=== PATIENT | male | born 1985 | race African-American/Black ===

== ENCOUNTER 2025-04-15 19:32 | Inpatient (IN) | payer OTHER ==
[2025-04-15 20:39] VITALS: BMI 23.7
[2025-04-15] MEDS ORDERED: hydrOXYzine PAMOATE 25 MG CAPSULE (FP) PO PRN (21:39)
[2025-04-15] MEDS ORDERED: LOPERAMIDE HCL 2 MG CAPSULE PO PRN (21:39)
[2025-04-15] MEDS ORDERED: BENZOCAINE/MENTHOL (CHLORASEPTIC ) LOZENGE MM PRN (21:39)
[2025-04-15] MEDS ORDERED: ACETAMINOPHEN 325 MG TABLET (FP) PO PRN (21:39)
[2025-04-15] MEDS ORDERED: ONDANSETRON *ODT* 4 MG TABLET SL PRN (21:39)
[2025-04-15] MEDS ORDERED: IBUPROFEN 400 MG TABLET (FP) PO PRN (21:39)
[2025-04-15] MEDS ORDERED: METHOCARBAMOL 500 MG TABLET PO PRN (21:39)
[2025-04-15] MEDS ORDERED: MAG HYDROX/AL HYDROX/SIMETH 30 ML UNIT-DOSE CUP PO PRN (21:39)
[2025-04-15] MEDS ORDERED: POLYETHYLENE GLYCOL (HEALTHYLAX) 3350 17 GM PACKET PO PRN (21:39)
[2025-04-15] MEDS ORDERED: NICOTINE POLACRILEX 2 MG LOZENGE BC PRN (21:39)
[2025-04-15] MEDS ORDERED: DICYCLOMINE HCL 10 MG CAPSULE PO PRN (21:39)
[2025-04-15] MEDS ORDERED: NICOTINE POLACRILEX 2 MG GUM BUC PRN (21:39)
[2025-04-15] MEDS ORDERED: BISMUTH SUBSALICYLATE 524 MG/30 ML PO PRN (21:39)
[2025-04-15] MEDS ORDERED: guaiFENesin 600 MG TABLET.ER (FP) PO PRN (21:39)
[2025-04-15] MEDS ORDERED: MAGNESIUM HYDROX 2400MG/30ML ORAL SUSPENSION 30 ML CUP PO PRN (21:39)
[2025-04-15] MEDS ORDERED: BENZONATATE 200 MG CAPSULE PO PRN (21:39)
[2025-04-15] MEDS ORDERED: NALOXONE (NARCAN) HCL 4 MG/0.1 ML SPRAY NS PRN (21:39)
[2025-04-15] MEDS ORDERED: chlordiazePOXIDE HCL 25 MG CAPSULE PO PRN (21:41)
[2025-04-15] MEDS ORDERED: MELATONIN 5 MG TABLETS ONE (22:30)
[2025-04-15] MEDS ORDERED: chlordiazePOXIDE HCL 25 MG CAPSULE ONE (22:30)
[2025-04-15] MEDS ORDERED: levETIRAcetam 500 MG TABLET (FP) PO ONE (22:31)
[2025-04-15] MEDS: THIAMINE 100 MG TABLET PO SCH (22:37)
[2025-04-15] MEDS: MELATONIN 5 MG TABLETS PO SCH (22:37)
[2025-04-15] MEDS: levETIRAcetam 500 MG TABLET (FP) PO SCH (22:37)
[2025-04-15] MEDS: chlordiazePOXIDE HCL 25 MG CAPSULE PO SCH (22:38)
[2025-04-16] MEDS: PRENATAL VITAMINS W/ FOLIC ACID TABLET (FP) PO SCH (09:35)
[2025-04-16] MEDS: NIFEdipine E.R. 30 MG TABLET PO SCH ×2 (09:36→19:32)
[2025-04-16 11:31] LABS: HEMATOCRIT 34.5 % (40.1-51.0); HEMOGLOBIN 11.1 g/dL (13.7-17.5); MCHC 32.2 g/dl (32.3-36.5); MEAN CELL VOLUME 92.5 fl (79.0-92.2); MEAN PLT VOLUME 9.7 fl (9.4-12.4); PLATELET COUNT 212 x10^3/uL (163-337); RDW 14.8 % (12.1-15.9)
[2025-04-16 11:34] LABS: CHLORIDE 101 mmol/L (98-107); POTASSIUM 4.1 mmol/L (3.5-5.1); SODIUM 139 mmol/L (136-145)
[2025-04-16 11:36] LABS: ALBUMIN 3.7 g/dl (3.4-5.0); ANION GAP 9 mmol/L (4-13); BLOOD UREA NITROGEN 13.5 mg/dL (7-18); CALCIUM 9.3 mg/dL (8.5-10.1); CO2 29 mmol/L (21-32); GLUCOSE,RANDOM 99 mg/dL (74-106)
[2025-04-16 11:39] LABS: CREATININE 0.8 mg/dL (0.55-1.3); SGOT/AST 46 U/L (15-37); SGPT/ALT 27 U/L (13-61)
[2025-04-16 11:41] LABS: BILIRUBIN,TOTAL 1.1 mg/dL (0.2-1); TOT PROT 6.7 g/dl (6.4-8.2)
[2025-04-16 11:42] LABS: ALK PHOS 55 U/L (45-117)
[2025-04-17] MEDS: chlordiazePOXIDE HCL 25 MG CAPSULE PO SCH (05:29)
[2025-04-17] MEDS: NALTREXONE HCL 50 MG TABLET PO ONE (09:00)
[2025-04-17] MEDS: NIFEdipine E.R 60 MG TABLET PO SCH (10:51)
[2025-04-18] MEDS ORDERED: chlordiazePOXIDE HCL 10 MG CAPSULE PO PRN
[2025-04-18] MEDS: chlordiazePOXIDE HCL 10 MG CAPSULE PO SCH (05:52)
[2025-04-18 08:41] VITALS: BP 115/87; PULSE 76; RESP 16; TEMP 98.4
[2025-04-18] MEDS: NALTREXONE HCL 50 MG TABLET PO SCH (10:23)
[2025-04-18] MEDS: IBUPROFEN 600 MG TABLET (FP) PO PRN (10:23)
[2025-04-18] MEDS ORDERED: chlordiazePOXIDE HCL 10 MG CAPSULE PO SCH (14:00)
[2025-04-19] MEDS ORDERED: chlordiazePOXIDE HCL 10 MG CAPSULE PO SCH (05:00)
[2025-04-19] MEDS ORDERED: chlordiazePOXIDE HCL 10 MG CAPSULE PO ONE (06:00)
[2025-04-20] MEDS ORDERED: chlordiazePOXIDE HCL 10 MG CAPSULE PO ONE (05:00)
== END 2025-04-18 12:41 | disposition home or self-care (01) | DRG 775 ==
LOC: YASAS 19:32 → Y6N 22:28
PROVIDERS: ADMIT Family Medicine; ATTEND Family Medicine
PROC: HZ2ZZZZ Detoxification Services for Substance Abuse Treatment (ICD-10-PCS; principal; 2025-04-15)
DX: F10.230 Alcohol dependence with withdrawal, uncomplicated (principal); F12.20 Cannabis dependence, uncomplicated; F17.210 Nicotine dependence, cigarettes, uncomplicated; I10 Essential (primary) hypertension
CPT/HCPCS: 36415; 80053; 80305; 80307; 85027; 86780; 93005; 93010

== ENCOUNTER 2025-06-28 00:25 | Inpatient (IN) | payer OTHER ==
[2025-06-28 00:48] VITALS: BMI 23.2
[2025-06-28] MEDS ORDERED: guaiFENesin 600 MG TABLET.ER (FP) PO PRN (02:30)
[2025-06-28] MEDS ORDERED: DICYCLOMINE HCL 10 MG CAPSULE PO PRN (02:30)
[2025-06-28] MEDS ORDERED: MAG HYDROX/AL HYDROX/SIMETH 30 ML UNIT-DOSE CUP PO PRN (02:30)
[2025-06-28] MEDS ORDERED: BISMUTH SUBSALICYLATE 524 MG/30 ML PO PRN (02:30)
[2025-06-28] MEDS ORDERED: LOPERAMIDE HCL 2 MG CAPSULE PO PRN (02:30)
[2025-06-28] MEDS ORDERED: POLYETHYLENE GLYCOL (HEALTHYLAX) 3350 17 GM PACKET PO PRN (02:30)
[2025-06-28] MEDS ORDERED: ONDANSETRON *ODT* 4 MG TABLET SL PRN (02:30)
[2025-06-28] MEDS ORDERED: NALOXONE (NARCAN) HCL 4 MG/0.1 ML SPRAY NS PRN (02:30)
[2025-06-28] MEDS ORDERED: BENZOCAINE/MENTHOL (CHLORASEPTIC ) LOZENGE MM PRN (02:30)
[2025-06-28] MEDS ORDERED: BENZONATATE 200 MG CAPSULE PO PRN (02:30)
[2025-06-28] MEDS ORDERED: IBUPROFEN 400 MG TABLET (FP) PO PRN (02:30)
[2025-06-28] MEDS ORDERED: MAGNESIUM HYDROX 2400MG/30ML ORAL SUSPENSION 30 ML CUP PO PRN (02:30)
[2025-06-28] MEDS ORDERED: IBUPROFEN 600 MG TABLET (FP) PO PRN (02:30)
[2025-06-28] MEDS ORDERED: hydrOXYzine PAMOATE 25 MG CAPSULE (FP) PO ONE (03:12)
[2025-06-28] MEDS ORDERED: METHOCARBAMOL 500 MG TABLET ONE (03:12)
[2025-06-28] MEDS: hydrOXYzine PAMOATE 25 MG CAPSULE (FP) PO PRN (03:18)
[2025-06-28] MEDS: METHOCARBAMOL 500 MG TABLET PO PRN (03:18)
[2025-06-28] MEDS ORDERED: ACETAMINOPHEN 325 MG TABLET (FP) ONE (03:20)
[2025-06-28] MEDS: ACETAMINOPHEN 325 MG TABLET (FP) PO PRN (03:21)
[2025-06-28] MEDS: PRENATAL VITAMINS W/ FOLIC ACID TABLET (FP) PO SCH (10:23)
[2025-06-28] MEDS: NIFEdipine E.R 60 MG TABLET PO SCH (13:57)
[2025-06-28] MEDS: MELATONIN 5 MG TABLETS PO SCH (22:09)
[2025-06-28] MEDS: THIAMINE 100 MG TABLET PO SCH (22:09)
[2025-06-29 10:21] LABS: GLUCOSE,RANDOM 98.0 mg/dL (74-106); TOT PROT 7.2 g/dl (6.4-8.2)
[2025-06-29 10:23] LABS: CO2 25.0 mmol/L (21-32)
[2025-06-29 10:24] LABS: ALK PHOS 43.0 U/L (40-150)
[2025-06-29 10:27] LABS: CREATININE 1.0 mg/dL (0.55-1.3); SGOT/AST 130.0 U/L (5-34); SGPT/ALT 85.0 U/L (0-55)
[2025-06-29 10:32] LABS: MCHC 33.5 g/dl (32.3-36.5); MEAN CELL VOLUME 93.2 fl (79.0-92.2); MEAN PLT VOLUME 10.2 fl (9.4-12.4); RDW 14.0 % (12.1-15.9)
[2025-06-29] MEDS: NALTREXONE HCL 50 MG TABLET PO SCH (10:38)
[2025-07-01] MEDS: NICOTINE 14 MG/24 HOURS TOPICAL PATCH TD SCH (12:03)
[2025-07-01] MEDS: NICOTINE POLACRILEX 2 MG LOZENGE BC SCH (12:35)
[2025-07-01] MEDS: GABAPENTIN 100 MG CAPSULE PO SCH (14:51)
[2025-07-01 17:33] VITALS: RESP 18
[2025-07-01] MEDS: NIFEdipine E.R. 30 MG TABLET PO SCH (21:39)
[2025-07-02 09:27] VITALS: BP 123/80; PULSE 95; TEMP 98
[2025-07-02] MEDS: hydrOXYzine PAMOATE 50 MG CAPSULE (FP) PO ONE (09:30)
== END 2025-07-02 09:23 | disposition home or self-care (01) | DRG 775 ==
LOC: YASAS 00:25 → Y6N 03:01
PROVIDERS: ADMIT Allergy & Immunology; ATTEND Counselor Addiction (Substance Use Disorder)
PROC: HZ2ZZZZ Detoxification Services for Substance Abuse Treatment (ICD-10-PCS; principal; 2025-06-28)
DX: F10.230 Alcohol dependence with withdrawal, uncomplicated (principal); F17.210 Nicotine dependence, cigarettes, uncomplicated; F10.282 Alcohol dependence with alcohol-induced sleep disorder; F10.24 Alcohol dependence with alcohol-induced mood disorder; E87.5 Hyperkalemia; I10 Essential (primary) hypertension; J45.909 Unspecified asthma, uncomplicated; G40.89 Other seizures; R74.8 Abnormal levels of other serum enzymes
CPT/HCPCS: 36415; 80053; 80307; 85027; 86780; 93005; 93010